=== PATIENT | male | born 1950 | race Caucasian/White ===

== ENCOUNTER → 2016-04-27 | Outpatient (CLI) | payer MEDICARE ==
--- NOTE | 2016-04-27 16:51 | MRI ---
EXAM DESCRIPTION: MR LUMBAR SPINE WITHOUT IV CONTRAST CLINICAL HISTORY: 66 y/o M, RADICULOPATHY COMPARISON: None TECHNIQUE: Multi planar, multi sequence imaging of the lumbar spine was acquired without IV contrast. FINDINGS: Vertebral body height, alignment and marrow signal are unremarkable. There is mild disc desiccation at all levels with intervertebral disc height loss only at L5-S1. L1-L2: No spinal canal or neural foraminal narrowing L2-L3: No spinal canal or neural foraminal narrowing. L3-L4: Mild facet degeneration. No spinal canal or neural foraminal narrowing. L4-5: Mild facet degeneration. There is mild bilateral neural foraminal narrowing. The midline diameter of the spinal canal is adequate at 1.3 cm. L5-S1: There is a left lateral recess and paracentral disc protrusion which contacts and posteriorly displaces the descending left S1 nerve root. The midline diameter of the spinal canal is adequate at 1.4 cm. There is moderate left neural foraminal narrowing with contact of the exiting left L5 nerve root. The right neural foramen is unremarkable. IMPRESSION: Today's exam demonstrates contact of the descending left S1 nerve root and exiting left L5 nerve root due to disc material and left neural foraminal narrowing. These findings could result in a left L5 and left S1 radiculopathy, if the patient is symptomatic. While not mentioned above there is edema noted adjacent to the spinal processes of L2, L3 and L4. This could be seen in setting of a sprain or strain. Electronically signed by: Stevie Conte MD 04/27/2016 16:49
--- NOTE | 2016-04-28 08:43 | CT ---
EXAM DESCRIPTION: CT ABDOMEN RUNOFF ANGIO WITH AND WITHOUT BILATERAL CLINICAL HISTORY: 66 y/o M, ATHEROSCLEROSIS BILATERAL LEGS COMPARISON: CT abdomen pelvis performed on November 07, 2014 TECHNIQUE: CTA of the abdomen and pelvis with bilateral lower extremity runoff was performed with IV contrast including 3D reformatted images. FINDINGS: The most superior portion of the abdominal aorta, including the origin of the celiac axis, is not included on this exam. With this in mind, mural calcifications are noted in the abdominal aorta without aneurysm or dissection period is some calcification at the origin of the left renal artery resulting in mild to moderate stenosis period the superior mesenteric and right renal arteries show mild atherosclerotic change without stenosis period there is a small accessory left renal artery. The inferior mesenteric artery is perfused. Calcified and noncalcified plaque is noted in the common, internal and external iliac arteries bilaterally resulting in only mild stenosis of the proximal right external iliac artery. Calcified and noncalcified plaque is also noted at the common femoral arteries bilaterally, resulting in moderate stenosis involving a short segment of both common femoral arteries. The profunda femoral arteries are perfused bilaterally period Diffuse atherosclerotic disease involves the superficial femoral arteries bilaterally including multiple moderate and moderately advanced short-segment stenotic lesions. Similar findings are noted in the popliteal arteries bilaterally, slightly worse on the right side period there is diffuse moderate atherosclerotic disease involving trifurcation vessels of both lower extremities, with 2 vessel runoff in both lower extremities at the level of the ankles (anterior and posterior tibial arteries) period Postoperative changes are noted of the right ankle period there is colonic diverticulosis without diverticulitis. Several uncomplicated bilateral renal cysts, the largest measuring up to 5 cm diameter in the right kidney, stable period postoperative changes in the right mid abdomen. There is a partially calcified 2.4 cm lesion in the omentum, stable from October,, uncertain etiology and questionable clinical significance. This is also stable from an older CT performed in October,. IMPRESSION: Diffuse atherosclerotic disease in both lower extremity including several moderate to moderately advanced stenotic lesions in the superficial femoral and popliteal arteries bilaterally. Limited evaluation of the celiac axis and proximal abdominal aorta. Calcified and noncalcified plaque at the origin of the left renal artery resulting in at least mild left renal artery stenosis. Colonic diverticulosis without diverticulitis and other nonacute findings as detailed above. Electronically signed by: Darien Cooper DO 04/28/2016 08:41
== END | disposition home or self-care (01) ==
LOC: MRI 12:49
PROVIDERS: ATTEND Family Medicine
DX: M54.16 Radiculopathy, lumbar region (principal)

== ENCOUNTER → 2016-07-24 | Outpatient (CLI) | payer MEDICARE | END | disposition home or self-care (01) | LOC: GMAB 16:22 | PROVIDERS: ATTEND Family Medicine | DX: E83.52 Hypercalcemia (principal) ==

== ENCOUNTER → 2016-08-23 | Outpatient (CLI) | payer MEDICARE | END | disposition home or self-care (01) | LOC: GMAB 16:31 | PROVIDERS: ATTEND Family Medicine | DX: G61.81 Chronic inflammatory demyelinating polyneuritis (principal); E83.52 Hypercalcemia ==

== ENCOUNTER 2016-10-13 04:18 | Emergency (ER) | payer MEDICARE ==
[2016-10-13] MEDS ORDERED: SODIUM CHLORIDE 0.9% (FLUSH) 10 ML SYG IV PRN (04:26)
[2016-10-13] MEDS ORDERED: ASPIRIN TABLET 325 MG TAB PO ONE (04:26)
[2016-10-13] MEDS ORDERED: NITROGLYCERIN 0.4 MG 25 EA TAB SL ONE (04:26)
[2016-10-13 04:37] VITALS: TEMP 97.9
--- NOTE | 2016-10-13 06:07 | RAD ---
EXAM: Single view chest. INDICATION: Chest pain. COMPARISON: Chest x-ray: 05/16/2015. FINDINGS: Cardiac silhouette: Mildly enlarged Zakiya: Unremarkable. Lobar consolidation: None. Pleural effusion: None. Pneumothorax: None. Other: None. Bones: Unremarkable. Other: None. IMPRESSION: 1. No acute cardiopulmonary process. Electronically signed by: Daquan Tobias MD 10/13/2016 6:05 AM CDT Workstation: [id number]
--- NOTE | 2016-10-13 06:50 | ED.PDOC ---
History of Present Illness - General Source: patient, RN notes reviewed, Vital Signs reviewed, EMS notes reviewed Exam Limitations: no limitations - History of Present Illness Initial Comments: Osmel Jimenez 66 y/o male stated that for the last 2 days feels his heart was racing accompanied by shortness of breath and chest discomfort while sitting on his recliner tonight.Had CABGx 5and left carotid endarterecrtomy.Denies diaphoresis,nausea/vomiting. Timing/Duration: other - 2 days Location: central Activities at Onset: rest Prior Chest Pain/Cardiac Workup: cardiac cath, echocardiography, heart attack Improving Factors: nothing Worsening Factors: nothing Nitro Today/Relief: 0.4 mg x 1, provided at home Aspirin Treatment Today: 325 mg x 1, provided at home Associated Symptoms: shortness of breath, other - palpitations <Donell Londono - Last Filed: 10/13/16 06:45> <Padmini Bishop - Last Filed: 10/13/16 08:00> - General Chief Complaint: Chest Pain/GA Stated Complaint: chest pain x2 days Time Seen by Provider: 10/13/16 06:12 - History of Present Illness Allergies/Adverse Reactions: Allergies Sulfa Antibiotics Allergy (Verified 02/26/15 02:37) Home Medications: Ambulatory Orders Fluticasone/Salmeterol 250/50 [Advair 250/50 Diskus] 1 puff INH Q12HR 02/02/14 Finasteride 5 mg PO DAILY 02/26/15 Tamsulosin [Flomax] 0.4 mg PO DAILY 02/26/15 Metoprolol Succinate [Metoprolol Succinate ER] 50 mg PO BID 05/16/15 Multiple Vitamins W/ Minerals [Multivital] 1 tab PO DAILY 05/16/15 Sitagliptin Phosphate [Januvia] 50 mg PO DAILY 05/16/15 Albuterol Sulfate [Proair Hfa] 108 mcg IN BID 03/09/16 Cyanocobalamin Inj [Vitamin B-12 Inj] 1,000 mcg IM .[id number] 03/09/16 Glipizide [Glipizide ER] 10 mg PO DAILY 03/09/16 Temazepam [Restoril] 30 mg PO BEDTIME PRN 03/09/16 Trazodone HCl 400 mg PO BEDTIME 03/09/16 Review of Systems - Review of Systems Constitutional: States: no symptoms reported EENTM: States: no symptoms reported Respiratory: States: no symptoms reported Cardiology: States: see HPI Gastrointestinal/Abdominal: States: no symptoms reported Genitourinary: States: no symptoms reported Musculoskeletal: States: other - joint instability Neurological: States: tremors Endocrine: States: no symptoms reported Hematologic/Lymphatic: States: no symptoms reported <Donell Londono R - Last Filed: 10/13/16 06:45> Past Medical History (General) - Patient Medical History Hx Seizures: No Hx Stroke: No Hx Dementia: No Hx Asthma: Yes Hx of COPD: No Hx Cardiac Disorders: Yes Hx Congestive Heart Failure: No Hx Pacemaker: No Hx Hypertension: Yes Hx Thyroid Disease: No Hx Diabetes: Yes Hx Gastroesophageal Reflux: Yes Hx Renal Disease: No Hx Cancer: No Hx of HIV: No Hx Hepatitis C: No Hx MRSA: No Surgical History: other - right hemicolectomy-colonic polyp carotid endarterectomy left - Vaccination History Hx Tetanus, Diphtheria Vaccination: No Hx Influenza Vaccination: No Hx Pneumococcal Vaccination: No - Social History Hx Tobacco Use: Yes Hx Chewing Tobacco Use: No Hx Alcohol Use: No Hx Substance Use: Yes Hx Substance Use Treatment: No Hx Depression: No Hx Physical Abuse: No Hx Emotional Abuse: No Hx Suspected Abuse: No - Activities of Daily Living Patient Lives Alone: Yes Grooming Ability: Independent Eating (Feeding) Ability: Independent Toileting Ability: Independent - Female History Patient : No <Donell Londono Last Filed: 10/13/16 06:45> Family Medical History - Family History Grandparents Living Status: Hx Family Congestive Heart Failure: Yes Hx Family;Other: thoracic aortic aneurysm Mother Family History: No Known Cause of : old age <Donell Londono R - Last Filed: 10/13/16 06:45> Physical Exam - Physical Exam General Appearance: Alert, Anxious, Comfortable, No apparent distress Eyes, Ears, Nose, Throat Exam: PERRL/EOMI, normal ENT inspection Neck: non-tender, full range of motion, supple Respiratory: chest non-tender, lungs clear, normal breath sounds Cardiovascular/Chest: normal peripheral pulses, regular rate, rhythm, no gallop Peripheral Pulses: radial,right: 1+, radial,left: 1+ Gastrointestinal/Abdominal: normal bowel sounds, non tender, soft Extremity: normal range of motion, normal inspection, no pedal edema, no calf tenderness Neurologic: alert, normal mood/affect, oriented x 3 Skin Exam: normal color, warm/dry <BryMarley R - Last Filed: 10/13/16 06:45> Progress - Progress Progress: 10/13/16 06:58 Vital Signs - 8 hr 10/13/16 10/13/16 04:30 04:34 Temperature 97.9 F Pulse Rate [ 55 L left] Respiratory 20 Rate Blood Pressure 153/78 [left] O2 Sat by Pulse 97 97 Oximetry 10/13/16 04:26 IV Care:Saline Lock per Protoc QSHIFT Telemetry .ONCE Sodium Chloride 0.9% (Flush) [Saline Flush Syringe] 10 ml IV PRN PRN EKG Stat Pulse Ox Stat 10/13/16 06:44 TROPONIN-I Stat TSH [THYROID STIMULATING HORMONE] Stat Laboratory Results - last 24 hr 10/13/16 10/13/16 04:40 04:40 WBC 6.3 RBC 5.61 Hgb 14.0 Hct 43.0 MCV 76.7 L MCH 24.9 L MCHC 32.4 L RDW 19.4 H Plt Count 144 MPV 8.9 Absolute Neuts (auto) 3.10 Absolute Lymphs (auto) 2.30 Absolute Monos (auto) 0.50 Absolute Eos (auto) 0.20 Absolute Basos (auto) 0.10 Neutrophils % 50.0 Lymphocytes % 36.5 Monocytes % 8.7 Eosinophils % 3.6 Basophils % 1.2 Normal RBC Morphology 3+hypochromia PT 10.9 INR 0.960 PTT (SP) 27.2 Sodium 135 Potassium 3.9 Chloride 99 L Carbon Dioxide 26 Anion Gap 13.9 BUN 19 H Creatinine 1.46 H BUN/Creatinine Ratio 13.0 Random Glucose 83 Serum Osmolality 271.5 L Calcium 8.9 Magnesium 1.9 Creatine Kinase 34 L CK-MB (CK-2) 1.9 CK-MB (CK-2) % Not Reportable Troponin I < 0.02 B-Natriuretic Peptide 94.2 - EKG/XRAY/CT EKG: Sinus, nonspecific ST T wave Chg - anterolateral leads Comments: heart rate-54 XRAY: chest - mild cardiomegaly <Donell Londono R - Last Filed: 10/13/16 06:45> - Progress Progress: 10/13/16 07:57 Second set of Troponin is normal. UA is normal. Had prolonged discussion with patient regarding his symptoms, results and potential causes. Will follow up with Dr. Hale and keep appt with Urologist. Laboratory Last Values WBC 6.3 K/mm3 (4.8-10.8) 10/13/16 04:40 RBC 5.61 M/mm3 (4.70-6.10) 10/13/16 04:40 Hgb 14.0 gm/dL (14.0-18.0) 10/13/16 04:40 Hct 43.0 % (42.0-52.0) 10/13/16 04:40 MCV 76.7 fl (80.0-94.0) L 10/13/16 04:40 MCH 24.9 pg (27.0-31.0) L 10/13/16 04:40 MCHC 32.4 g/dL (33.0-37.0) L 10/13/16 04:40 RDW 19.4 % (11.5-14.5) H 10/13/16 04:40 Plt Count 144 K/mm3 (130-400) 10/13/16 04:40 MPV 8.9 fl (7.40-10.4) 10/13/16 04:40 Absolute Neuts (auto) 3.10 K/uL (1.8-6.8) 10/13/16 04:40 Absolute Lymphs (auto) 2.30 K/uL (1.0-3.4) 10/13/16 04:40 Absolute Monos (auto) 0.50 K/uL (0.2-0.8) 10/13/16 04:40 Absolute Eos (auto) 0.20 K/uL (0.0-0.4) 10/13/16 04:40 Absolute Basos (auto) 0.10 K/uL (0.0-0.1) 10/13/16 04:40 Neutrophils % 50.0 % (42.0-78.0) 10/13/16 04:40 Lymphocytes % 36.5 % (20.0-50.0) 10/13/16 04:40 Monocytes % 8.7 % (2.0-9.0) 10/13/16 04:40 Eosinophils % 3.6 % (1.0-5.0) 10/13/16 04:40 Basophils % 1.2 % (0.0-2.0) 10/13/16 04:40 Normal RBC Morphology 2+aniso 2+poikilocytosis 2+microcytosis 3+hypochromia 10/13/16 04:40 Normal RBC Morphology 2+aniso 2+poikilocytosis 2+microcytosis 3+hypochromia 10/13/16 04:40 Normal RBC Morphology 2+aniso 2+poikilocytosis 2+microcytosis 3+hypochromia 10/13/16 04:40 Normal RBC Morphology 2+aniso 2+poikilocytosis 2+microcytosis 3+hypochromia 10/13/16 04:40 PT 10.9 SECONDS (9.4-12.5) 10/13/16 04:40 INR 0.960 10/13/16 04:40 PTT (SP) 27.2 SECONDS (25.1-36.5) 10/13/16 04:40 Sodium 135 mmol/L (135-145) 10/13/16 04:40 Potassium 3.9 mmol/L (3.6-5.0) 10/13/16 04:40 Chloride 99 mmol/L (101-111) L 10/13/16 04:40 Carbon Dioxide 26 mmol/L (21-31) 10/13/16 04:40 Anion Gap 13.9 (12-18) 10/13/16 04:40 BUN 19 mg/dL (7-18) H 10/13/16 04:40 Creatinine 1.46 mg/dL (0.6-1.3) H 10/13/16 04:40 BUN/Creatinine Ratio 13.0 (10-20) 10/13/16 04:40 Random Glucose 83 mg/dL (70-105) 10/13/16 04:40 Serum Osmolality 271.5 mOsm/L (275-295) L 10/13/16 04:40 Calcium 8.9 mg/dL (8.4-10.2) 10/13/16 04:40 Magnesium 1.9 mg/dL (1.8-2.5) 10/13/16 04:40 Creatine Kinase 34 IU/L (38-174) L 10/13/16 04:40 CK-MB (CK-2) 1.9 ng/mL (0.0-4.4) 10/13/16 04:40 CK-MB (CK-2) % Not Reportable 10/13/16 04:40 Troponin I < 0.02 ng/mL (0.01-0.05) 10/13/16 06:55 B-Natriuretic Peptide 94.2 pg/ml (0-100) 10/13/16 04:40 TSH 0.75 uIU/mL (0.34-5.60) 10/13/16 06:55 Urine Color Yellow (Yellow) 10/13/16 07:19 Urine Appearance Clear (Clear) 10/13/16 07:19 Urine pH 5.5 (4.5-7.8) 10/13/16 07:19 Ur Specific [place] <= 1.005 (1.005-1.030) 10/13/16 07:19 Urine Protein Negative mg/dL 10/13/16 07:19 Urine Glucose (UA) Negative mg/dL (Negative) 10/13/16 07:19 Urine Ketones Negative mg/dL (NEGATIVE) 10/13/16 07:19 Urine Blood Negative (Negative) 10/13/16 07:19 Urine Nitrite Negative 10/13/16 07:19 Urine Bilirubin Negative (NEGATIVE) 10/13/16 07:19 Urine Urobilinogen 0.2 mg/dL (0.2-1.0) 10/13/16 07:19 Ur Leukocyte Esterase Negative (Negative) 10/13/16 07:19 Urine RBC 0 /hpf 10/13/16 07:19 Urine WBC 0 /hpf 10/13/16 07:19 Ur Epithelial Cells 0 /hpf 10/13/16 07:19 Urine Bacteria 0 10/13/16 07:19 <Padmini Bishop - Last Filed: 10/13/16 08:00> Departure <Donell Londono - Last Filed: 10/13/16 06:45> - Departure Time of Disposition: 07:59 Diet: resume usual diet Activity: increase activity as tolerated <Padmini Bishop - Last Filed: 10/13/16 08:00> - Departure Clinical Impression: Palpitations, Chest pain, atypical, Prostatic hypertrophy, Urinary hesitancy due to benign prostatic hyperplasia Disposition: Discharge to Home or Self Care Condition: Good Departure Forms: ED Discharge - Pt. Copy, Patient Portal Self Enrollment Instructions: DI for Palpitations, DI for Atypical Chest Pain, Benign Prostatic Hyperplasia Referrals: Miguelito Hale MD [Primary Care Provider] - 1-5 Days Home Medications: Ambulatory Orders Fluticasone/Salmeterol 250/50 [Advair 250/50 Diskus] 1 puff INH Q12HR 02/02/14 Finasteride 5 mg PO DAILY 02/26/15 Tamsulosin [Flomax] 0.4 mg PO DAILY 02/26/15 Metoprolol Succinate [Metoprolol Succinate ER] 50 mg PO BID 05/16/15 Multiple Vitamins W/ Minerals [Multivital] 1 tab PO DAILY 05/16/15 Sitagliptin Phosphate [Januvia] 50 mg PO DAILY 05/16/15 Albuterol Sulfate [Proair Hfa] 108 mcg IN BID 03/09/16 Cyanocobalamin Inj [Vitamin B-12 Inj] 1,000 mcg IM .[id number] 03/09/16 Glipizide [Glipizide ER] 10 mg PO DAILY 03/09/16 Temazepam [Restoril] 30 mg PO BEDTIME PRN 03/09/16 Trazodone HCl 400 mg PO BEDTIME 03/09/16
[2016-10-13 08:47] VITALS: BP 156/88; O2SAT 96
== END 2016-10-13 08:35 | disposition home or self-care (01) ==
LOC: ER 04:18
DX: R07.9 Chest pain, unspecified (principal); R00.2 Palpitations; N40.1 Benign prostatic hyperplasia with lower urinary tract symptoms; R39.11 Hesitancy of micturition; I10 Essential (primary) hypertension; E11.9 Type 2 diabetes mellitus without complications; K21.9 Gastro-esophageal reflux disease without esophagitis; Z87.891 Personal history of nicotine dependence; Z95.1 Presence of aortocoronary bypass graft; Z88.2 Allergy status to sulfonamides; Z79.899 Other long term (current) drug therapy

== ENCOUNTER → 2016-10-19 | Outpatient (CLI) | payer MEDICARE ==
--- NOTE | 2016-10-19 17:27 | MRI ---
EXAM: Brain w/wo Contrast CLINICAL INDICATION: 66-year-old male with dizziness and vascular dementia without behavioral disturbance. COMPARISON: MRI brain 08/14/2012. TECHNIQUE: Multiplanar, multi-sequence MR imaging of the brain pre-and post intravenous administration of gadolinium. FINDINGS: No abnormal increased signal intensity is present on diffusion-weighted imaging to suggest restricted diffusion/acute infarction. T2/flair weighted imaging reveals minimal foci of patchy increased signal intensity present in a subcortical and periventricular deep white matter distribution, a nonspecific finding however may be seen with small vessel ischemic change. Subcentimeter focus of increased T2 signal signal intensity within the RIGHT thalamus may represent sequela of small infarction. There is no evidence of intracranial hemorrhage, mass or edema. Incidentally noted partial empty sella otherwise the midline structures are within normal limits. No abnormal post gadolinium enhancement. The ventricles and sulci are enlarged compatible with underlying volume loss. Slightly more focal volume loss present within the RIGHT greater than LEFT parietal lobes. Major intracranial flow voids are identified. The paranasal sinuses and mastoid air cells are patent. IMPRESSION: 1. No abnormal increased signal intensity is present on diffusion-weighted imaging to suggest restricted diffusion/acute infarction. 2. T2/flair weighted imaging reveals minimal foci of patchy increased signal intensity present in a subcortical and periventricular deep white matter distribution, a nonspecific finding however may be seen with small vessel ischemic change. Electronically signed by: Madeleine Jensen MD 10/19/2016 5:26 PM CDT Workstation: [id number]
--- NOTE | 2016-10-22 12:56 | US ---
EXAM DESCRIPTION: Carotid Duplex CLINICAL HISTORY: 66 years, Male, CAROTID BRUIT COMPARISON: [None.] FINDINGS: Peak systolic velocity right common carotid artery 99 centimeters/second. Peak systolic velocity right internal carotid artery 83 centimeters/second. Right ICA to CCA ratio 0.8. Antegrade flow in the right vertebral artery. Grayscale images show a small to moderate amount of calcified plaque in the right carotid bifurcation. Peak systolic velocity left common carotid artery 68 centimeters/second. Peak systolic velocity left internal carotid artery 120 centimeters/second. Left ICA to CCA ratio 1.8. [Antegrade] flow in the left vertebral artery. Grayscale images show a small amount of plaque in the left carotid bifurcation. IMPRESSION: Mild (less than 50%) bilateral carotid artery stenosis by velocity measurements. Approximately 60-70% stenosis of the bilateral carotid applications is suspected, and CTA is recommended for further evaluation.. Electronically signed by: Darien Cooper MD 10/22/2016 12:55 PM CDT Workstation: [id number]
== END | disposition home or self-care (01) ==
LOC: MRI 13:53
PROVIDERS: ATTEND Psychiatry & Neurology Neurology
DX: G61.81 Chronic inflammatory demyelinating polyneuritis (principal); R09.89 Other specified symptoms and signs involving the circulatory and respiratory systems; F01.50 Vascular dementia, unspecified severity, without behavioral disturbance, psychotic disturbance, mood disturbance, and anxiety

== ENCOUNTER → 2016-11-16 | Outpatient (CLI) | payer MEDICARE ==
--- NOTE | 2016-11-17 09:45 | CT ---
EXAM DESCRIPTION: Chest w/Contrast CLINICAL HISTORY: 66 years, Male, CHEST PAIN COMPARISON: None TECHNIQUE: Thin-section axial CT images are obtained during rapid bolus administration of nonionic IV contrast media. Reconstructed MPR images are created and reviewed as well. This exam was performed according to our departmental dose-optimization program, which includes automated exposure control, adjustment of the mA and/or kV according to patient size and/or use of iterative reconstruction technique. FINDINGS: A right upper lobe anterolateral lateral subpleural 10 x 4 x 6 mm noncalcified nodule is present with the lung martinez otherwise essentially clear. Filtrate or emphysematous or fibrotic changes or bullous disease is not apparent. No pleural effusions or consolidation or additional nodules are noted. Below the diaphragm the upper abdomen is unremarkable. Good vascular enhancement was achieved. The supraclavicular and thoracic inlet region as well as the superior mediastinum are normal. Hilar or mediastinal lymphadenopathy is not apparent. Mild kyphosis and degenerative change in the dorsal spine without compression deformity is noted. Previous sternotomy and bypass surgery is evident. The chest wall and axillary regions are unremarkable. No bony destructive changes are noted. IMPRESSION: 1. Noncalcified 10 x 4 x 6 mm subpleural nodule in the right upper lobe anterolaterally near the apex. Additional pulmonary nodules or abnormal adenopathy is not apparent. 2. The 2017 Fleischner Society recommendations for low risk and a high risk patients is a follow-up CT examination at 6-12 months and at 18-24 months for reassessment of this nodule and for the development of additional nodules. 3. The lung martinez are otherwise essentially clear with evidence of previous sternotomy and bypass surgery with normal sized heart. Electronically signed by: Alfredo Gallardo MD 11/17/2016 9:44 AM CDT
== END | disposition home or self-care (01) ==
LOC: CT 14:28
PROVIDERS: ATTEND Psychiatry & Neurology Neurology
DX: R07.9 Chest pain, unspecified (principal)

== ENCOUNTER → 2017-05-02 | Outpatient (CLI) | payer MEDICARE | LOC: GMAB 15:28 | PROVIDERS: ATTEND Family Medicine | DX: I10 Essential (primary) hypertension (principal); Z12.5 Encounter for screening for malignant neoplasm of prostate | CPT/HCPCS: 84443; G0103 ==

== ENCOUNTER → 2017-07-03 | Outpatient (CLI) | payer MEDICARE ==
--- NOTE | 2017-07-03 16:56 | RAD ---
EXAM DESCRIPTION: Barium Swallow: Rad-Fluoroscopy. 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 The patient swallowed barium pill with water. The patient swallowed gas-producing granules, water, and heavy density barium under fluoroscopic visualization. The images were obtained with the patient supine and horizontal. Patient drank medium density barium through a straw in the semi-prone position. 92 fluoroscopic cine loop images. 7 static fluoroscopic images. Total fluoroscopy time was 2.4 minutes. DAP: 129.75 mGy.. FINDINGS: Premature spillage prior to making swallow was noted. No significant abnormalities in the hypopharynx or larynx with no laryngeal penetration or aspiration. Primary peristaltic wave was unremarkable in the proximal and middle third of the esophagus with no filling defects or mass effect. Secondary and tertiary contractions are noted in the distal third of the esophagus with no mass effect. Reflux into the middle third of the esophagus from the stomach and distal esophagus was seen in the standing position. No hiatal hernia. In the supine position, reflux was elicited with Valsalva maneuver and coughing maneuver. IMPRESSION: 1. No gross abnormalities in the swallowing mechanism of the hypopharynx and larynx. 2. Primary peristaltic wave in the proximal two thirds of the esophagus. Tertiary and secondary contractions in the distal esophagus with no mass effect. Reflux into the mid and proximal esophagus from the distal esophagus and stomach with patient standing. No hiatal hernia. 3. Reflux into the middle esophagus from the stomach with Valsalva and coughing maneuvers. Electronically signed by: Marin Joseph MD 07/03/2017 4:55 PM CDT
--- NOTE | 2017-07-03 17:05 | RAD ---
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 Barium swallow esophagram on this visit. TECHNIQUE: PA, lateral views. FINDINGS: Lungs: Moderate expansion. Senescent densities in the lungs bilaterally. Pleural spaces: No effusion or pneumothorax bilaterally. Heart: Normal size. Pericardial surgical hardware. Pulmonary Vascularity: Not increased. Mediastinum: Not widened. Sternotomy wires. Aorta: Unremarkable. Bony Thorax/Spine: No acute bony thoracic abnormalities. Narrowing of thoracic spine disc spaces and anterior ridging at some levels. IMPRESSION: No radiographic evidence of acute cardiopulmonary disease. Minimal senescent changes. Electronically signed by: Marin Joseph MD 07/03/2017 5:03 PM CDT
== END ==
LOC: RAD 14:01
PROVIDERS: ATTEND Student in an Organized Health Care Education/Training Program
DX: M96.89 Other intraoperative and postprocedural complications and disorders of the musculoskeletal system (principal); I25.718 Atherosclerosis of autologous vein coronary artery bypass graft(s) with other forms of angina pectoris; K21.9 Gastro-esophageal reflux disease without esophagitis; R49.0 Dysphonia

== ENCOUNTER → 2017-07-04 | Outpatient (CLI) | payer MEDICARE ==
--- NOTE | 2017-07-06 03:18 | US ---
EXAM DESCRIPTION: Carotid Duplex CLINICAL HISTORY: M96.89, I65.21, I25.718 COMPARISON: None TECHNIQUE: Carotid Doppler ultrasound FINDINGS: Right Submitted images show calcified and noncalcified plaque in the right common carotid artery without high-grade stenosis. Extensive calcified plaque is seen in the right carotid bulb extending into the proximal right ICA. Flow velocities are not significantly elevated in the region of the right carotid bulb or proximal right ICA despite the presence of extensive plaque which appears significantly stenotic. Moderately elevated flow velocity in the proximal left ECA is consistent with origin stenosis. Transverse images show 33% area luminal narrowing of the upper right common carotid artery with 35% area luminal narrowing of the right carotid bulb. Above the bulb, 31% area luminal narrowing of the right ICA is noted. The following flow velocities were obtained: Common carotid artery peak systolic flow velocity measures 115 centimeters per second. Internal carotid artery peak systolic flow velocity measures 113 centimeters per second. External carotid artery peak systolic flow velocity measures 137 centimeters per second. This is elevated suggesting mild to moderate origin stenosis. Flow in the right vertebral artery is antegrade. The right internal carotid to common carotid peak systolic flow velocity ratio equals 1.0 which is normal. Left Submitted images show extensive calcified plaque in the left common carotid artery and left carotid bulb. Flow velocities are not significantly elevated however. There is tortuosity of the right ICA. Soft plaque in the left carotid bulb is prominent. Axial images show 29% stenosis of the upper left CCA with 81% area luminal stenosis of the left carotid bulb and 63% area stenosis of the left ICA above the bulb. The following flow velocities were obtained: Common carotid artery peak systolic flow velocity measures 90 centimeters per second. Internal carotid artery peak systolic flow velocity measures 109 centimeters per second. External carotid artery peak systolic flow velocity measures 45 centimeters per second. Flow in the left vertebral artery is antegrade. The left internal carotid to common carotid peak systolic flow velocity ratio of 1.2 is normal. IMPRESSION: Elevated flow velocity in the right ECA consistent with moderate origin stenosis. No significant flow velocity elevation within the right or left common carotid or internal carotid arteries. Antegrade flow in the vertebral arteries. Extensive calcified and noncalcified plaque in the common carotid arteries and at the carotid bifurcations bilaterally. Actual sonographic measurements suggest 31% area luminal stenosis of the right ICA and 35% area luminal stenosis of the right carotid bulb. Actual sonographic measurements suggest 63% area luminal narrowing of the left ICA and 81% area luminal narrowing of the left carotid bulb. Electronically signed by: John Fairchild MD 07/05/2017 8:33 AM CDT
== END ==
LOC: LAB.O 13:43
PROVIDERS: ATTEND Nuclear Medicine Nuclear Cardiology
DX: I65.21 Occlusion and stenosis of right carotid artery (principal); I79.8 Other disorders of arteries, arterioles and capillaries in diseases classified elsewhere

== ENCOUNTER → 2017-12-20 | Outpatient (CLI) | payer MEDICARE ==
--- NOTE | 2017-12-20 15:08 | RAD ---
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 Heart size is prominent with normal pulmonary vascularity. No pleural effusion or pneumothorax. Lungs are clear with no consolidating infiltrate. Lateral view shows intact sternum and spurring mid to lower T-spine. Heart appears larger than on previous study. IMPRESSION: No acute process is identified in the chest. Electronically signed by: John Fairchild MD 12/20/2017 3:06 PM CDT
== END ==
LOC: RAD 14:22
PROVIDERS: ATTEND Nuclear Medicine Nuclear Cardiology
DX: I25.718 Atherosclerosis of autologous vein coronary artery bypass graft(s) with other forms of angina pectoris (principal); I65.21 Occlusion and stenosis of right carotid artery; E11.51 Type 2 diabetes mellitus with diabetic peripheral angiopathy without gangrene

== ENCOUNTER → 2018-01-15 | Outpatient (CLI) | payer MEDICARE ==
--- NOTE | 2018-01-15 15:50 | RAD ---
EXAM DESCRIPTION: Chest,2 Views CLINICAL HISTORY: CHEST PAIN COMPARISON: December 20, 2017 FINDINGS: Two-view chest x-ray shows cardiomediastinal silhouette and pulmonary vasculature to be within normal limits. Interval removal of sternotomy wires. Placement of anterior plate and screw fixating the sternum and multiple levels. Post-CABG changes are identified. The lungs are normally aerated and clear. Costophrenic angles are sharp. Moderate disc degenerative changes of the spine are seen. IMPRESSION: No radiographic evidence of acute cardiopulmonary disease. Electronically signed by: Klever Chacon MD 01/15/2018 3:48 PM CDT
== END ==
LOC: RAD 14:23
PROVIDERS: ATTEND Thoracic Surgery (Cardiothoracic Vascular Surgery)
DX: R07.89 Other chest pain (principal)

== ENCOUNTER 2018-03-18 16:16 | Emergency (ER) | payer MEDICARE ==
[2018-03-18 16:45] VITALS: BP 169/93; O2SAT 94
--- NOTE | 2018-03-18 17:03 | ED.PDOC ---
History of Present Illness - General Chief Complaint: General Stated Complaint: rib pain and sob Time Seen by Provider: 03/18/18 16:50 Source: patient Exam Limitations: no limitations - History of Present Illness Initial Comments: Patient presents with chest pain. He had a revision of a sternotomy 2 1/2 months ago. The original sternotomy was done in 2014 for a CABG procedure. He says it has been painful and finally got revised. For the last six weeks he has had a wound vac. Today it was taken off. He says that it has become painful today. He has been treated for osteomyelitis for the last six weeks that he says was a result of the sternotomy revision. He is not sure that he has had a fever. Denies dyspnea. His only complaint is the pain which is constant, midsternal that radiates to the right and left chest, aching in nature, insidious onset, denies other symptoms. Timing/Duration: changing over time Severity: moderate Improving Factors: nothing Worsening Factors: nothing Associated Symptoms: denies symptoms Allergies/Adverse Reactions: Allergies Sulfa Antibiotics Allergy (Verified 03/18/18 16:45) Home Medications: Ambulatory Orders Fluticasone/Salmeterol 250/50 [Advair 250/50 Diskus] 1 puff INH Q12HR 02/02/14 Finasteride 5 mg PO DAILY 02/26/15 Tamsulosin [Flomax] 0.4 mg PO DAILY 02/26/15 Metoprolol Succinate [Metoprolol Succinate ER] 50 mg PO BID 05/16/15 Multiple Vitamins W/ Minerals [Multivital] 1 tab PO DAILY 05/16/15 Sitagliptin Phosphate [Januvia] 50 mg PO DAILY 05/16/15 Albuterol Sulfate [Proair Hfa] 108 mcg IN BID 03/09/16 Cyanocobalamin Inj [Vitamin B-12 Inj] 1,000 mcg IM .[id number] 03/09/16 Glipizide [Glipizide ER] 10 mg PO DAILY 03/09/16 Temazepam [Restoril] 30 mg PO BEDTIME PRN 03/09/16 Trazodone HCl 400 mg PO BEDTIME 03/09/16 Review of Systems - Review of Systems Constitutional: States: no symptoms reported EENTM: States: no symptoms reported Respiratory: States: no symptoms reported Cardiology: States: see HPI Gastrointestinal/Abdominal: States: no symptoms reported Genitourinary: States: no symptoms reported Musculoskeletal: States: see HPI Skin: States: no symptoms reported Neurological: States: no symptoms reported Endocrine: States: no symptoms reported Hematologic/Lymphatic: States: no symptoms reported Past Medical History (General) - Patient Medical History Hx Seizures: No Hx Stroke: No Hx Dementia: No Hx Asthma: Yes Hx of COPD: No Hx Cardiac Disorders: Yes Hx Congestive Heart Failure: No Hx Pacemaker: No Hx Hypertension: Yes Hx Thyroid Disease: No Hx Diabetes: Yes Hx Gastroesophageal Reflux: Yes Hx Renal Disease: No Hx Cancer: No Hx of HIV: No Hx Hepatitis C: No Hx MRSA: No Surgical History: other - Vaccination History Hx Tetanus, Diphtheria Vaccination: No Hx Influenza Vaccination: No Hx Pneumococcal Vaccination: No - Social History Hx Tobacco Use: Yes Hx Chewing Tobacco Use: No Hx Alcohol Use: No Hx Substance Use: Yes Hx Substance Use Treatment: No Hx Depression: No Hx Physical Abuse: No Hx Emotional Abuse: No Hx Suspected Abuse: No - Female History Patient : No Family Medical History - Family History Grandparents Living Status: Hx Family Congestive Heart Failure: Yes Hx Family;Other: thoracic aortic aneurysm Mother Family History: No Known Cause of : old age Physical Exam - Physical Exam General Appearance: Alert Eye Exam: bilateral normal Ears, Nose, Throat: hearing grossly normal, normal ENT inspection, normal pharynx Neck: non-tender, full range of motion, supple Respiratory: lungs clear, normal breath sounds Cardiovascular/Chest: regular rate, rhythm, other - dressing in place soaked with blood. Gastrointestinal/Abdominal: normal bowel sounds, non tender, soft Back Exam: normal inspection, no CVA tenderness Extremity: normal range of motion, non-tender, normal inspection Neurologic: no motor/sensory deficits, alert, normal mood/affect, oriented x 3 Skin Exam: normal color Lymphatic: no adenopathy Progress - Progress Progress: 03/18/18 20:08 Laboratory Tests 03/18/18 03/18/18 03/18/18 17:17 17:17 17:17 WBC 13.2 H RBC 4.74 Hgb 12.2 L Hct 36.9 L MCV 77.9 L MCH 25.7 L MCHC 33.1 RDW 17.9 H Plt Count 285 MPV 8.2 Absolute Neuts (auto) 10.80 H Absolute Lymphs (auto) 1.00 Absolute Monos (auto) 1.40 H Absolute Eos (auto) 0.00 Absolute Basos (auto) 0.10 Neutrophils % 81.6 H Lymphocytes % 7.2 L Monocytes % 10.5 H Eosinophils % 0.1 L Basophils % 0.6 PT 13.2 H INR 1.32 H PTT (SP) 33.2 H Sodium 127 L Potassium 3.8 Chloride 88 L Carbon Dioxide 25 Anion Gap 17.8 BUN 13 Creatinine 1.03 BUN/Creatinine Ratio 12.6 Random Glucose 176 H Serum Osmolality 259.6 L Lactic Acid Calcium 8.5 Total Bilirubin 1.0 AST 17 ALT 11 Alkaline Phosphatase 75 Creatine Kinase 47 CK-MB (CK-2) 0.7 CK-MB (CK-2) % Not Reportable Troponin I 0.03 B-Natriuretic Peptide Serum Total Protein 7.9 Albumin 3.5 Globulin 4.4 H Albumin/Globulin Ratio 0.8 L 03/18/18 03/18/18 17:17 17:17 WBC RBC Hgb Hct MCV MCH MCHC RDW Plt Count MPV Absolute Neuts (auto) Absolute Lymphs (auto) Absolute Monos (auto) Absolute Eos (auto) Absolute Basos (auto) Neutrophils % Lymphocytes % Monocytes % Eosinophils % Basophils % PT INR PTT (SP) Sodium Potassium Chloride Carbon Dioxide Anion Gap BUN Creatinine BUN/Creatinine Ratio Random Glucose Serum Osmolality Lactic Acid 1.7 Calcium Total Bilirubin AST ALT Alkaline Phosphatase Creatine Kinase CK-MB (CK-2) CK-MB (CK-2) % Troponin I B-Natriuretic Peptide 246.0 H* Serum Total Protein Albumin Globulin Albumin/Globulin Ratio CT chest showed cellulitis at the sternum consistent with osteomyelitis of the sternum. Patient was given morphine 4 mg IV x one and admitted to the floor. Departure - Departure Clinical Impression: Cellulitis, Osteomyelitis Disposition: Admit Patient Condition: Fair Departure Forms: ED Discharge - Pt. Copy, Patient Portal Self Enrollment Diet: other - as per hospitalist Activity: increase activity as tolerated Referrals: MARY KAY MARTINEZ MD [Primary Care Provider] - 1-2 Weeks Home Medications: Ambulatory Orders Fluticasone/Salmeterol 250/50 [Advair 250/50 Diskus] 1 puff INH Q12HR 02/02/14 Finasteride 5 mg PO DAILY 02/26/15 Tamsulosin [Flomax] 0.4 mg PO DAILY 02/26/15 Metoprolol Succinate [Metoprolol Succinate ER] 50 mg PO BID 05/16/15 Multiple Vitamins W/ Minerals [Multivital] 1 tab PO DAILY 05/16/15 Sitagliptin Phosphate [Januvia] 50 mg PO DAILY 05/16/15 Albuterol Sulfate [Proair Hfa] 108 mcg IN BID 03/09/16 Cyanocobalamin Inj [Vitamin B-12 Inj] 1,000 mcg IM [id number] 03/09/16 Glipizide [Glipizide ER] 10 mg PO DAILY 03/09/16 Temazepam [Restoril] 30 mg PO BEDTIME PRN 03/09/16 Trazodone HCl 400 mg PO BEDTIME 03/09/16
[2018-03-18] MEDS ORDERED: MORPHINE SULFATE INJ 10 MG/ML VIAL IV ONE (17:11)
--- NOTE | 2018-03-18 17:37 | RAD ---
EXAM DESCRIPTION: Chest,2 Views CLINICAL HISTORY: chest pain COMPARISON: 01/15/2018 FINDINGS: Two views of the chest are submitted. Metallic bands appear unchanged. Surgical cardiac devices are unchanged in appearance. Cardiac silhouette appears normal. No focal parenchymal or pleural disease. No acute bony abnormality. There is no significant pulmonary vascular engorgement. IMPRESSION: No evidence of acute cardiopulmonary disease. 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
--- NOTE | 2018-03-18 19:25 | CT ---
PROCEDURE: CTA Chest CLINICAL HISTORY: 67 years Male chest pain, hx of sternal osteomyelitis COMPARISON: None. TECHNIQUE: Contiguous axial images were obtained through the chest during the infusion of IV contrast. Reformatted images obtained. MIP reformatted images obtained. This exam was performed according to our department optimization program which includes automated exposure control, adjustment of the mA and/or kv according to patient size and/or use of iterative reconstruction technique. FINDINGS: There are mildly enlarged mediastinal lymph nodes. There is extensive soft tissue stranding of the fat and soft tissue attenuation of the anterior chest wall consistent with history of osteomyelitis of the sternum. Postsurgical changes are seen. There are bone defects of the sternum. Ectopic gas consistent with recent surgery is seen. Fluid attenuation extends from the surgical defect into the anterior mediastinum. Communication is not excluded. No definite mediastinal abscess is seen. No definite abscess is seen in the chest wall. There is moderate diastases of the sternal defect, and the left side is anterior in position relative to the right side by up to approximately one sternal thickness. There are mildly enlarged axillary lymph nodes bilaterally. There is extensive emphysematous change of both lungs and there is atelectasis and scar in the right upper lung. Small underlying nodules not excluded. No significant consolidation. No pleural effusion or pneumothorax. The inferior chest is are not fully imaged. No pulmonary embolus is seen. However, timing of the bolus favors enhancement of the aorta over pulmonary arterial opacification and this limits sensitivity for PE. IMPRESSION: Cellulitis and fluid attenuation at the surgical bed with no clear evidence of abscess. Findings are consistent with cellulitis related to known sternal osteomyelitis. Postsurgical changes are seen and there is enlargement of mediastinal lymph nodes. Fluid attenuation in the mediastinum is likely related to inflammation but no definite mediastinal abscess is seen. No acute pulmonary abnormality. See additional comments above. Electronically signed by: Marin Jc 03/18/2018 7:23 PM [employer] OPERATOR
[2018-03-18] MEDS ORDERED: MORPHINE SULFATE INJ 10 MG/ML VIAL IM ONE (21:11)
[2018-03-18] MEDS ORDERED: VANCOMYCIN PER PHARMACY INJ SCH (21:30)
[2018-03-18] MEDS ORDERED: VANCOMYCIN HCL INJ 1,000 MG, VANCOMYCIN HCL INJ 500 MG in SODIUM CHLORIDE 0.9% 250ML 25... IVPB SCH (21:30)
[2018-03-18 22:00] VITALS: TEMP 99.2
[2018-03-18] MEDS ORDERED: SODIUM CHLORIDE 0.9% 1000ML 1,000 ML IVS ONE (22:35)
[2018-03-18] MEDS ORDERED: VANCOMYCIN HCL INJ 500 MG VIAL ONE (22:47)
[2018-03-18] MEDS ORDERED: SODIUM CHLORIDE 0.9% 250ML 250 ML ONE (22:48)
[2018-03-18] MEDS ORDERED: VANCOMYCIN HCL INJ 1,000 MG VIAL IVPB ONE (22:48)
[2018-03-19] MEDS ORDERED: MORPHINE SULFATE INJ 10 MG/ML VIAL ONE (01:07)
[2018-03-19] MEDS ORDERED: MORPHINE SULFATE INJ 10 MG/ML VIAL IV ONE (01:08)
== END 2018-03-19 01:20 | disposition home or self-care (01) ==
LOC: ER 16:16 → UNDOADMOB 21:27 → MS 21:27 → UNDODISOB 03-19 01:20 → ER 03-19 01:20
DX: M86.8X8 Other osteomyelitis, other site (principal); L03.313 Cellulitis of chest wall; J45.909 Unspecified asthma, uncomplicated; I51.9 Heart disease, unspecified; I10 Essential (primary) hypertension; E11.9 Type 2 diabetes mellitus without complications; K21.9 Gastro-esophageal reflux disease without esophagitis; Z87.891 Personal history of nicotine dependence; Z79.899 Other long term (current) drug therapy; Z88.2 Allergy status to sulfonamides
CPT/HCPCS: 36415; 71046; 71275; 80053; 82550; 82553; 83605; 83880; 84484; 85025; 85610; 85730; 86140; 87040; 93005; 96374; 96375; 96376; 99285; J2270; J3370; J7030; J7050

== ENCOUNTER → 2018-04-03 | Outpatient (CLI) | payer MEDICARE | LOC: BFHH 12:58 | PROVIDERS: ATTEND Internal Medicine Infectious Disease | DX: T82.898A Other specified complication of vascular prosthetic devices, implants and grafts, initial encounter (principal); M86.20 Subacute osteomyelitis, unspecified site ==

== ENCOUNTER → 2018-04-05 | Outpatient (CLI) | payer MEDICARE | LOC: BFHH 12:57 | PROVIDERS: ATTEND Family Medicine | DX: I25.10 Atherosclerotic heart disease of native coronary artery without angina pectoris (principal); I10 Essential (primary) hypertension ==

== ENCOUNTER → 2018-04-08 | Outpatient (CLI) | payer MEDICARE | LOC: BFHH 14:40 | PROVIDERS: ATTEND Family Medicine | DX: M86.20 Subacute osteomyelitis, unspecified site (principal); R79.82 Elevated C-reactive protein (CRP); T82.898A Other specified complication of vascular prosthetic devices, implants and grafts, initial encounter; A49.01 Methicillin susceptible Staphylococcus aureus infection, unspecified site; S21.221 Laceration with foreign body of right back wall of thorax without penetration into thoracic cavity; I25.10 Atherosclerotic heart disease of native coronary artery without angina pectoris ==

== ENCOUNTER → 2018-04-15 | Outpatient (CLI) | payer MEDICARE | LOC: BFHH 16:40 | PROVIDERS: ATTEND Family Medicine | DX: T82.898D Other specified complication of vascular prosthetic devices, implants and grafts, subsequent encounter (principal); I10 Essential (primary) hypertension; S21.221A Laceration with foreign body of right back wall of thorax without penetration into thoracic cavity, initial encounter; M86.20 Subacute osteomyelitis, unspecified site; A49.01 Methicillin susceptible Staphylococcus aureus infection, unspecified site; R79.82 Elevated C-reactive protein (CRP) ==

== ENCOUNTER → 2018-04-16 | Outpatient (CLI) | payer MEDICARE | LOC: BFHH 16:11 | PROVIDERS: ATTEND Family Medicine | DX: A49.01 Methicillin susceptible Staphylococcus aureus infection, unspecified site (principal); M86.20 Subacute osteomyelitis, unspecified site; S21.221A Laceration with foreign body of right back wall of thorax without penetration into thoracic cavity, initial encounter; R79.82 Elevated C-reactive protein (CRP) ==

== ENCOUNTER → 2018-04-22 | Outpatient (CLI) | payer MEDICARE | LOC: BFHH 18:01 | PROVIDERS: ATTEND Family Medicine | DX: T82.898A Other specified complication of vascular prosthetic devices, implants and grafts, initial encounter (principal); R79.82 Elevated C-reactive protein (CRP); A49.01 Methicillin susceptible Staphylococcus aureus infection, unspecified site; M86.20 Subacute osteomyelitis, unspecified site; I10 Essential (primary) hypertension ==

== ENCOUNTER → 2018-04-29 | Outpatient (CLI) | payer MEDICARE | LOC: BFHH 12:31 | PROVIDERS: ATTEND Family Medicine | DX: T82.898A Other specified complication of vascular prosthetic devices, implants and grafts, initial encounter (principal); S21.221A Laceration with foreign body of right back wall of thorax without penetration into thoracic cavity, initial encounter; M86.20 Subacute osteomyelitis, unspecified site; A49.01 Methicillin susceptible Staphylococcus aureus infection, unspecified site; R79.82 Elevated C-reactive protein (CRP) ==

== ENCOUNTER → 2018-05-07 | Outpatient (CLI) | payer MEDICARE | LOC: BFHH 16:59 | PROVIDERS: ATTEND Family Medicine | DX: T82.898A Other specified complication of vascular prosthetic devices, implants and grafts, initial encounter (principal); S21.221A Laceration with foreign body of right back wall of thorax without penetration into thoracic cavity, initial encounter; M86.20 Subacute osteomyelitis, unspecified site; A49.01 Methicillin susceptible Staphylococcus aureus infection, unspecified site; R79.82 Elevated C-reactive protein (CRP) ==

== ENCOUNTER → 2019-08-05 | Outpatient (CLI) | payer MEDICARE | LOC: LAB.O 11:18 | PROVIDERS: ATTEND Family Medicine | DX: I10 Essential (primary) hypertension (principal); E11.9 Type 2 diabetes mellitus without complications; E78.5 Hyperlipidemia, unspecified; R53.83 Other fatigue; Z12.5 Encounter for screening for malignant neoplasm of prostate | CPT/HCPCS: 36415; 80053; 80061; 81001; 82043; 82570; 83036; 84443; 85025; G0103 ==

== ENCOUNTER → 2020-01-14 | Outpatient (CLI) | payer MEDICARE ==
--- NOTE | 2020-01-14 16:15 | US ---
EXAM DESCRIPTION: Extremity,Lower RT Arteries: Ultrasound. CLINICAL HISTORY: VASCULAR DISEASE COMPARISON: None. TECHNIQUE: Doppler evaluation of the bilateral lower extremity arterial flow waveforms and velocities. FINDINGS: Arterial waveforms in the right lower extremity are multiphasic except for the right posterior tibial artery and right dorsalis pedis artery.. . Comments: Decreased velocities in the right posterior tibial artery and the right dorsalis pedis artery. IMPRESSION: Doppler ultrasound of the bilateral lower extremity arterial system shows possible stenosis in the right posterior tibial artery and in the right dorsalis pedis artery, which could indicate a more proximal stenosis in the right anterior tibial artery. Consider correlation with unilateral or bilateral lower extremity CTA.. Electronically signed by: Marin Joseph MD 01/14/2020 4:13 PM CDT
== END ==
LOC: US 14:37
PROVIDERS: ATTEND Thoracic Surgery (Cardiothoracic Vascular Surgery)
DX: I73.9 Peripheral vascular disease, unspecified (principal); I77.9 Disorder of arteries and arterioles, unspecified

== ENCOUNTER → 2020-03-05 | Outpatient (CLI) | payer MEDICARE | LOC: YCFC.O 13:43 | PROVIDERS: ATTEND Thoracic Surgery (Cardiothoracic Vascular Surgery) | DX: I10 Essential (primary) hypertension (principal); I73.9 Peripheral vascular disease, unspecified; E11.9 Type 2 diabetes mellitus without complications; E78.5 Hyperlipidemia, unspecified ==